=== PATIENT | male | born 1960 | race Caucasian/White ===

== ENCOUNTER 2018-09-27 11:06 | Outpatient (CLI) | payer OTHER | END 2018-09-27 11:07 | disposition critical access hospital (66) | LOC: EMS 11:06 | PROVIDERS: ATTEND Surgery | DX: T63.441A Toxic effect of venom of bees, accidental (unintentional), initial encounter (principal); L50.9 Urticaria, unspecified; L29.9 Pruritus, unspecified | CPT/HCPCS: A0425; A0427 ==

== ENCOUNTER 2018-09-27 11:26 | Emergency (ER) | payer OTHER ==
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
[2018-09-27] MEDS ORDERED: SODIUM CHLORIDE 0.9% 1,000 ML IV ONE (12:07)
[2018-09-27] MEDS ORDERED: diphenhydrAMINE INJ 50 MG/ML VIAL IVP STA (12:07)
[2018-09-27] MEDS ORDERED: EPINEPHrine 1 MG/ML AMP IM STA (12:07)
[2018-09-27] MEDS ORDERED: FAMOTIDINE 20 MG/2 ML VIAL IVP STA (12:07)
[2018-09-27] MEDS ORDERED: DEXAMETHASONE 10 MG/ML VIAL IVP STA (12:07)
[2018-09-27] MEDS ORDERED: CETIRIZINE 10 MG TABLET PO STA (12:07)
[2018-09-27 13:06] VITALS: BP 118/68
== END 2018-09-27 13:15 | disposition home or self-care (01) ==
LOC: EDUNIT# → ED 11:26
DX: T63.441A Toxic effect of venom of bees, accidental (unintentional), initial encounter (principal)
CPT/HCPCS: 96361; 96372; 96374; 96375; 99283; 99285; A9270; J1200